=== PATIENT | female | born 1995 | race Caucasian/White ===

== ENCOUNTER 2022-04-03 04:42 | Emergency (ER) | payer OTHER ==
[~2022-04-03] VITALS: Ht 154.9 cm; Wt 98.6 kg
[2022-04-03 05:41] VITALS: BP 134/82
[2022-04-03] MEDS ORDERED: CORTSUSP AS (05:52)
== END 2022-04-03 06:43 | disposition home or self-care (01) ==
LOC: EMS 04:47
DX: H60.92 Unspecified otitis externa, left ear (principal)
CPT/HCPCS: 99283